=== PATIENT | female | born 1980 | race African-American/Black ===

== ENCOUNTER → 2022-07-07 | Day surgery (SDC) | payer BC ==
[~2022-07-07] MED LIST: ACETAMINOPHEN-1 EAC4 PO; BUPIVACAINE HCL 0.5% INJ 30 ML VIAL INJ ONE; CEFAZOLIN SODIUM 2 GM ONE; DEXAMETHASONE SOD PHOS INJ 4 MG/ML SDV ONE; FENTANYL CITRATE/PF 100MCG/2 ML INJ ONE; KETOROLAC TROMETHAMINE 30 MG/ML VIAL ONE; LACTATED RINGER'S 1,000 ML ONE; LIDOCAINE HCL 2% LOCAL INJ 5 ML SDV VIAL INJ ONE; MEPERIDINE HCL INJ 25 MG/ML VIAL ONE; METOCLOPRAMIDE HCL 10 MG/2ML VIAL ONE; MIDAZOLAM HCL 2 MG/2 ML VIAL ONE; MULTI-VITAMIN1 EACH PO; NEURONTIN300 MG PO; ONDANSETRON HCL INJ 2MG/ML 2ML 2 MG/ML VIAL ONE; POVIDONE IODINE 0.05% 0.05 % ML PO ONE; PROPOFOL IV EMULSION 10 MG/ML 20 ML VIAL ONE; SEVOFLURANE INHAL SOLN 250 ML PEN BTL ONE
[2022-07-07 12:49] VITALS: TEMP 98
[2022-07-07 13:46] VITALS: BP 131/88; PULSE 72; RESP 18; O2SAT 100
== END | disposition home or self-care (01) ==
LOC: OR 09:46
PROVIDERS: ATTEND Podiatrist Foot & Ankle Surgery
DX: G57.51 Tarsal tunnel syndrome, right lower limb (principal); G58.8 Other specified mononeuropathies; G89.29 Other chronic pain; Z91.040 Latex allergy status
CPT/HCPCS: 28035; 81025; J1100; J1885; J2001; J2175; J2250; J2405; J2704; J2765; J3010; J7121